=== PATIENT | male | born 1975 | race Caucasian/White ===

== ENCOUNTER 2021-11-26 16:07 | Emergency (ER) | payer MEDICAID ==
[~2021-11-26] VITALS: Ht 182.9 cm; Wt 86.2 kg
[2021-11-26 16:10] VITALS: BP_SYST 120
--- NOTE | 2021-11-26 16:16 | NUR ---
bib bls for weakness dr witt at bedside
[2021-11-26 16:56] LABS: BASOPHILS % (AUTO) 0.6 % (0.0-2.0); EOSINOPHILS % (AUTO) 0.1 % (0.0-4.0); HEMATOCRIT 44.6 % (36-54); LYMPHOCYTES # (AUTO) 1.8 K/uL (1.0-5.5); LYMPHOCYTES % (AUTO) 33.7 % (20.5-51.5); MEAN CORPUSCULAR VOLUME 97 fL (79.0-98.0); MONOCYTES # (AUTO) 0.3 K/uL (0.0-1.0); MONOCYTES % (AUTO) 6.2 % (1.7-9.3); NEUTROPHILS # (AUTO) 3.1 K/uL (1.8-7.7); NEUTROPHILS % (AUTO) 59.4 % (40.0-70.0); PLATELET COUNT (AUTO) 197 K/uL (130-430); RED BLOOD CELL COUNT(AUTO) 4.61 MIL/uL (4.2-6.2); RED CELL DISTRIBUTION WIDTH 13.8 % (9.0-15.0); WHITE BLOOD COUNT (AUTO) 5.2 K/uL (4.8-10.8)
[2021-11-26 17:14] LABS: ANION GAP 13 (5-15); CALCIUM 8.5 mg/dL (8.4-11.0); CHLORIDE 94 mmol/L (98-107); GFR AFRICAN AMERICAN 133 mL/min (>90); GLUCOSE 84 mg/dL (70-99); POTASSIUM 3.2 mmol/L (3.5-5.1); UREA NITROGEN, BLOOD 9 mg/dL (8-21)
[2021-11-26 17:27] LABS: ACETONE, SERUM NEGATIVE (NEGATIVE)
[2021-11-26 17:28] LABS: ALANINE AMINOTRANSFERASE 43 U/L (12-78); ALBUMIN 3.4 g/dL (3.4-4.8); ASPARTATE AMINOTRANSFERASE 67 U/L (10-37); TOTAL BILIRUBIN 0.7 mg/dL (0.0-1.0)
[2021-11-26] MEDS ORDERED: NACL 0.9% 2,000 ML IV ONE (17:45)
--- NOTE | 2021-11-26 20:52 | NUR ---
RECEIVED IN BED AA&O X4, SPEECH CLEAR AND COHERENT , DENIES PAIN WHEN ASSESSED , V/S STABLE
--- NOTE | 2021-11-26 21:00 | NUR ---
PATIENT ELOPED, IV WAS FOUND TO BE PULLED AND LEFT AT BEDSIDE. PATIENT NO WHERE TO BE FOUND.
== END 2021-11-26 21:06 | disposition left against medical advice (07) ==
LOC: SED 16:07
DX: E86.0 Dehydration (principal); R53.1 Weakness; R42 Dizziness and giddiness; Z79.899 Other long term (current) drug therapy
CPT/HCPCS: 99285; 96360; 71045; 80053; 82009; 82550; 85025; 36415; 93005; 83605; J7030